=== PATIENT | female | born 1950 | race Hispanic/Latino ===

== ENCOUNTER 2016-04-30 14:41 | Outpatient (CLI) | payer MEDICARE ==
--- NOTE | 2016-04-30 16:20 | XRay Report ---
PA and lateral chest: There is tortuous. The cardiac contour is borderline in size. No vascular congestion. The lungs are clear of any nodule or infiltrate. There are no pleural effusions. Compared to a prior study on August 18, 2012 the findings are essentially unchanged. Impression: No acute findings.
== END 2016-04-30 14:42 | disposition home or self-care (01) ==
LOC: XRAY 14:41
PROVIDERS: ATTEND Nurse Practitioner Acute Care
DX: N18.6 End stage renal disease (principal)
CPT/HCPCS: 71020

== ENCOUNTER 2017-11-10 17:28 | Emergency (ER) | payer MEDICARE ==
[2017-11-10] MEDS ORDERED: XYLOCAINE 2%/ EPI 1:200,000 INFILTRATI ONE (18:40)
[2017-11-10] MEDS ORDERED: XYLOCAINE 1%/ EPI 1:100,000 INFILTRATI ONE (18:42)
[2017-11-10 18:54] VITALS: BP 147/79
--- NOTE | 2017-11-10 19:28 | Emergency Department Report ---
HPI - General Chief Complaint: Laceration/Recheck/Suture Time Seen by Provider: 11/10/17 18:30 - HPI HPI: The patient is a 67yo female who presents for evaluation of postop bleeding for the past one to 2 hours. The patient states that she received a skin excision from the right upper chest wall earlier today at her disease management nurse's office. She shares that after arriving home, she developed constant severe bleeding from the incision site, worsened with movement of the right arm. She denies trauma to the surgical site, swelling, surrounding redness, warmth, or development of fever. She also denies blood thinner use or easy bruising or bleeding. ED Past Medical Hx - Past Medical History Previous Medical History?: Yes Hx Hypertension: Yes (History of HTn, but currently off meds) Hx CVA: No Hx Heart Attack/AMI: No Hx Congestive Heart Failure: No Hx Diabetes: No Hx Deep Vein Thrombosis: No Hx Pulmonary Embolism: No Hx GERD: No Hx Liver Disease: No Hx Renal Disease: Yes (end-stage renal disease) Hx of Cancer: No Hx Sickle Cell Disease: No Hx Arthritis: Yes Hx Headaches / Migraines: No Hx Seizures: No Hx Kidney Stones: No Hx Psychiatric Treatment: No Hx Asthma: No Hx COPD: No Hx Tuberculosis: No Hx Dementia: No Hx HIV: No - Surgical History Past Surgical History?: Yes Hx Coronary Stent: No Hx Open Heart Surgery: No Hx Pacemaker: No Hx Internal Defibrillator: No Hx Cholecystectomy: No Hx Appendectomy: No Hx Breast Surgery: No Additional Surgical History: Left upper extremity fistula, hysterectomy - Social History Smoking Status: Light Tobacco Smoker Substance Use Type: None ED Review of Systems ROS: Stated complaint: BLEEDING SURGICAL SITE Other details as noted in HPI Constitutional: denies: fever ENT: denies: throat or neck pain Respiratory: denies: cough, shortness of breath Cardiovascular: denies: chest pain Endocrine: denies unexplained weight loss or gain Gastrointestinal: denies: abdominal pain, nausea Genitourinary: denies: dysuria Musculoskeletal: denies: leg swelling Skin: reports bleeding denies: rash Neurological: denies: headache Hematological/Lymphatic: denies: easy bleeding or easy bruising Psych: denies sadness or hopelessness Physical Exam - Physical Exam Vital Signs: Vital Signs 11/10/17 11/10/17 11/10/17 17:28 17:31 17:45 Temperature Pulse Rate Respiratory Rate Blood Pressure 123/101 123/101 Blood Pressure [Right] O2 Sat by Pulse 99 93 99 Oximetry 11/10/17 11/10/17 11/10/17 17:59 18:00 18:15 Temperature 98.2 F Pulse Rate 95 H Respiratory 18 Rate Blood Pressure 123/101 123/101 147/79 Blood Pressure 123/101 [Right] O2 Sat by Pulse 98 98 99 Oximetry 11/10/17 11/10/17 11/10/17 18:31 18:45 18:52 Temperature Pulse Rate Respiratory 18 Rate Blood Pressure 147/79 147/79 Blood Pressure [Right] O2 Sat by Pulse 100 99 100 Oximetry Physical Exam: General: well-nourished, well-developed, no acute distress Head: Normocephalic, atraumatic Eyes: normal sclera ENT: Mucous membranes are pink and moist Neck: trachea midline, neck supple, No neck stiffness, no cervical adenopathy Respiratory: Breath sounds equal bilaterally, no wheezing, rales, or rhonchi Cardio: S1 and S2 present, no murmurs, rubs, gallops, capillary refill is brisk Abdomen: Normoactive bowel sounds, soft abdomen, no rigidity, no guarding or rebound tenderness Chest WALL/Back: surgical incision site present to the right upper chest wall, 1 cm of wound dehiscence present to center of incision site, slow constant bleeding present from wound, no surrounding swelling, purpura, crepitus, warmth , fluctuance. Surrounding skin is soft and pliable, no signs of compartment syndrome Musc: No pitting edema Skin: No rash Psych: Normal affect ED Course Vital Signs 11/10/17 11/10/17 11/10/17 17:28 17:31 17:45 Temperature Pulse Rate Respiratory Rate Blood Pressure 123/101 123/101 Blood Pressure [Right] O2 Sat by Pulse 99 93 99 Oximetry 11/10/17 11/10/17 11/10/17 17:59 18:00 18:15 Temperature 98.2 F Pulse Rate 95 H Respiratory 18 Rate Blood Pressure 123/101 123/101 147/79 Blood Pressure 123/101 [Right] O2 Sat by Pulse 98 98 99 Oximetry 11/10/17 11/10/17 11/10/17 18:31 18:45 18:52 Temperature Pulse Rate Respiratory 18 Rate Blood Pressure 147/79 147/79 Blood Pressure [Right] O2 Sat by Pulse 100 99 100 Oximetry - Laceration /Wound Repair Right Upper Anterior Chest Wound Location: chest Wound Length (cm): 2 Wound's Depth, Shape: superficial, linear Irrigated w/ Saline (ccs): 250 Betadine Prep?: Yes Anesthesia: Lidocaine w/ Epi Volume Anesthetic (ccs): 10 Wound Repaired With: sutures Suture Size/Type: 3:0, nylon Number of Sutures: 4 Layer Closure?: No Sterile Dressing Applied?: Yes Progress: bleeding controlled, patient tolerated well ED Medical Decision Making - Lab Data Result diagrams: 11/10/17 19:29 - Medical Decision Making The patient was seen and examined by myself. The patient is placed on a printing grey cloth tender and continuous pulse ox. On initial evaluation, the patient was found to be in no distress. Evaluation orders were placed. 4 sutures were placed in the patient's dehisced wound, and bleeding was controlled. The patient was monitored for greater than 1 hour. Lab results reveal normal coags and platelet level greater than 100. The patient was reevaluated and reported that their symptoms were markedly improved, and the patient was found to have continued resolution of her bleeding. The patient is stable for discharge with outpatient follow-up. The patient is given follow-up and return instructions. The patient expressed understanding and agreed with the plan. The patient is discharged in stable condition. Critical care attestation.: If time is entered above; I have spent that time in minutes in the direct care of this critically ill patient, excluding procedure time. ED Disposition Clinical Impression: Bleeding from wound Postoperative wound dehiscence Qualifiers: Encounter type: initial encounter Qualified Code(s): T81.31XA - Disruption of external operation (surgical) wound, not elsewhere classified, initial encounter Disposition: DC-01 TO HOME OR SELFCARE Is pt being admited?: No Does the pt Need Aspirin: No Condition: Stable Instructions: Suture Care (ED), Acute Wound Care (ED), Bleeding (ED) Referrals: ODETTE LAYTON DO [Staff Physician] - 3-5 Days Time of Disposition: 19:25
[2017-11-10 19:45] LABS: Basophils % (Auto) 0.5 % (0.0-1.8); Eosinophils # (Auto) 0.1 K/mm3 (0.0-0.4); Eosinophils % (Auto) 2.1 % (0.0-4.3); Hematocrit 27.7 % (30.3-42.9); Hemoglobin 8.7 gm/dl (10.1-14.3); Lymphocytes # (Auto) 1.3 K/mm3 (1.2-5.4); Lymphocytes % (Auto) 29.2 % (13.4-35.0); Mean Corpuscular HGB Conc 31 % (30-34); Mean Corpuscular Hemoglobin 30 pg (28-32); Mean Corpuscular Volume 96 fl (79-97); Monocytes # (Auto) 0.4 K/mm3 (0.0-0.8); Monocytes % (Auto) 8.9 % (0.0-7.3); Platelet Count 123 K/mm3 (140-440); Red Cell Distribution Width 15.9 % (13.2-15.2)
[2017-11-10 19:55] LABS: INR 1.3 (0.87-1.13)
[2017-11-10 19:56] LABS: Partial Thromboplastin Time 28.5 Sec. (24.2-36.6)
== END 2017-11-10 20:19 | disposition home or self-care (01) ==
LOC: ED 17:28
DX: S21.111A Laceration without foreign body of right front wall of thorax without penetration into thoracic cavity, initial encounter (principal); T81.31XA Disruption of external operation (surgical) wound, not elsewhere classified, initial encounter; I12.0 Hypertensive chronic kidney disease with stage 5 chronic kidney disease or end stage renal disease; N18.6 End stage renal disease; M19.90 Unspecified osteoarthritis, unspecified site; Z90.710 Acquired absence of both cervix and uterus; Z72.0 Tobacco use; W26.8XXA Contact with other sharp object(s), not elsewhere classified, initial encounter; Y93.89 Activity, other specified; Y92.89 Other specified places as the place of occurrence of the external cause; Y99.8 Other external cause status
CPT/HCPCS: 36415; 85025; 85610; 85730

== ENCOUNTER 2017-11-30 15:31 | Emergency (ER) | payer MEDICARE ==
[2017-11-30 15:41] VITALS: BP 160/85
--- NOTE | 2017-11-30 16:57 | Emergency Department Report ---
ED Recheck HPI - General Chief Complaint: Dental/Oral Stated Complaint: SUTURES DETACHED Time Seen by Provider: 11/30/17 16:18 Source: patient Mode of arrival: Ambulatory Limitations: No Limitations - History of Present Illness Initial Comments: This is a 67-year-old female nontoxic, well nourished in appearance, no acute signs of distress presents to the ED for wound check. Patient stated she had a surgical procedure by a plastic surgeon Dr. Swann this morning. Patient stated she contacted Dr. Swann which he instructed patient to come to the ED for a surgical site check. Patient stated she was concerned that the stitches has came out and had bleeding. Patient stated that she had active bleeding after surgery about 1 hour after surgery but now has stopped. Patient denies any fever, chills, nausea, vomiting, chest pain, shortness of breath, headache or stiff neck. Patient denies any allergies. MD Complaint: wound re-check -: This morning Returns Today for: wound recheck Symptoms Since Prior Visit: no new symptoms Associated Symptoms: none. denies: fever, chills, chest pain, shortness of breath, rash, malaise, nasuea, abdominal pain - Related Data Allergies Allergy/AdvReac Type Severity Reaction Status Date / Time No Known Allergies Allergy Verified 11/30/17 15:41 ED Review of Systems ROS: Stated complaint: SUTURES DETACHED Other details as noted in HPI Constitutional: denies: chills, fever Eyes: denies: eye pain, eye discharge, vision change ENT: denies: ear pain, throat pain Respiratory: denies: cough, shortness of breath, wheezing Cardiovascular: denies: chest pain, palpitations Endocrine: no symptoms reported Gastrointestinal: denies: abdominal pain, nausea, diarrhea Genitourinary: denies: urgency, dysuria, discharge Musculoskeletal: denies: back pain, joint swelling, arthralgia Skin: denies: rash, lesions Neurological: denies: headache, weakness, paresthesias Psychiatric: denies: anxiety, depression Hematological/Lymphatic: denies: easy bleeding, easy bruising ED Past Medical Hx - Past Medical History Previous Medical History?: Yes Hx Hypertension: Yes (History of HTn, but currently off meds) Hx CVA: No Hx Heart Attack/AMI: No Hx Congestive Heart Failure: No Hx Diabetes: No Hx Deep Vein Thrombosis: No Hx Pulmonary Embolism: No Hx GERD: No Hx Liver Disease: No Hx Renal Disease: Yes (end-stage renal disease, HD M-W-) Hx Sickle Cell Disease: No Hx Arthritis: Yes Hx Headaches / Migraines: No Hx Seizures: No Hx Kidney Stones: No Hx Psychiatric Treatment: No Hx Asthma: No Hx COPD: No Hx Tuberculosis: No Hx Dementia: No Hx HIV: No - Surgical History Hx Coronary Stent: No Hx Open Heart Surgery: No Hx Pacemaker: No Hx Internal Defibrillator: No Hx Cholecystectomy: No Hx Appendectomy: No Hx Breast Surgery: No Additional Surgical History: Left upper extremity fistula, hysterectomy, skin cancer removal - Social History Smoking Status: Never Smoker Substance Use Type: None ED Physical Exam - General Limitations: No Limitations General appearance: alert, in no apparent distress - Head Head exam: Present: atraumatic, normocephalic - Expanded Head Exam Expanded 1 - dressing intake with no active bleeding and sutures intack - Eye Eye exam: Present: normal appearance - ENT ENT exam: Present: mucous membranes moist - Neck Neck exam: Present: normal inspection - Respiratory Respiratory exam: Present: normal lung sounds bilaterally. Absent: respiratory distress - Cardiovascular Cardiovascular Exam: Present: regular rate, normal rhythm. Absent: systolic murmur, diastolic murmur, rubs, gallop - GI/Abdominal GI/Abdominal exam: Present: soft, normal bowel sounds - Extremities Exam Extremities exam: Present: normal inspection - Back Exam Back exam: Present: normal inspection - Neurological Exam Neurological exam: Present: alert, oriented X3 - Psychiatric Psychiatric exam: Present: normal affect, normal mood - Skin Skin exam: Present: warm, dry, intact, normal color. Absent: rash ED Course Vital Signs 11/30/17 15:42 Temperature 99 F Pulse Rate 91 H Respiratory 16 Rate Blood Pressure 160/85 O2 Sat by Pulse 95 Oximetry - Reevaluation(s) Reevaluation #1: 11/30/17 16:59 Patient is speaking in full sentences with no signs of distress noted. ED Recheck MDM - Medical Decision Making This is a 67-year-old female that presents with a wound check. Patient is stable and was examined by me. I contacted Dr. Singh Swann at [phone] and explained to him of the phsycial exam and he stated that is normal and patient needs to follow-up in the office Thursday. Dr. Swann stated that he told patient to go to the ED becasue they were not understanding what he was telling them and that he was not in his office. A sterile dressing has been reapplied. Patient was was notified and instructed to follow up with Dr. Swann on Thursday or if symptoms worsened and continued to contact Dr. wSann or come to the ER as soon as possible. At time of discharge, the patient does not seem toxic or ill in appearance. No acute signs of distress noted. Patient agrees to discharge treatment plan of care. No further questions noted by the patient. Critical care attestation.: If time is entered above; I have spent that time in minutes in the direct care of this critically ill patient, excluding procedure time. ED Disposition Clinical Impression: Visit for wound check Disposition: TO HOME OR SELFCARE Is pt being admited?: No Does the pt Need Aspirin: No Condition: Stable Additional Instructions: Follow up with Dr. Swann on Thursday or if symptoms worsened and continued to contact Dr. Swann or come to the ER as soon as possible. Referrals: JAYME BRANDT MD [Primary Care Provider] - 3-5 Days ZORA PANG MD [Staff Physician] - 3-5 Days [facility] [Outside] - 3-5 Days
== END 2017-11-30 17:33 | disposition home or self-care (01) ==
LOC: ED 15:31
DX: Z48.01 Encounter for change or removal of surgical wound dressing (principal); I12.0 Hypertensive chronic kidney disease with stage 5 chronic kidney disease or end stage renal disease; N18.6 End stage renal disease; Z99.2 Dependence on renal dialysis; M19.90 Unspecified osteoarthritis, unspecified site; Z90.710 Acquired absence of both cervix and uterus
CPT/HCPCS: 99282

== ENCOUNTER 2018-10-05 07:15 | Day surgery (SDC) | payer MEDICARE ==
[2018-10-05] MEDS ORDERED: NACL 0.9% 1000 ML 1,000 ML IV SCH (08:00)
--- NOTE | 2018-10-05 09:24 | Anesthesia Day of Surgery ---
Anesthesia Day of Surgery - Day of Surgery Patient Examined: Yes Patient H&P Reviewed: Yes Patient is NPO: Yes
--- NOTE | 2018-10-05 09:29 | Anesthesia Consultation ---
Anesthesia Consult and Med Hx Date of service: 10/05/18 - Airway Anesthetic Teeth Evaluation: Poor, Chipped ROM Head & Neck: Adequate Mental/Hyoid Distance: Adequate Mallampati Class: Class II Intubation Access Assessment: Good - Pre-Operative Health Status ASA Pre-Surgery Classification: ASA3 Proposed Anesthetic Plan: MAC - Pulmonary Hx Asthma: Yes COPD: No - Cardiovascular System Hx Hypertension: Yes (CHF) Hx Heart Attack/AMI: No Hx Pacemaker: No Hx Internal Defibrillator: No - Central Nervous System Hx Neuromuscular Disorder: Yes (ARTHRITIS LIMITS ACTIVITIES) Hx Seizures: No Hx Psychiatric Problems: Yes (ANXIETY/DEPRESSION) - Endocrine Hx Renal Disease: Yes (LAST HD YESTERDAY) Hx End Stage Renal Disease: Yes Hx Liver Disease: No Hx Hypothyroidism: Yes - Hematic Hx Anemia: Yes Hx Sickle Cell Disease: No - Other Systems Hx Cancer: Yes (SKIN CANCER)
[2018-10-05] MEDS ORDERED: DIPRIVAN 10 MG/ML IV ONE ×4 (09:44→10:06)
[2018-10-05] MEDS ORDERED: XYLOCAINE MPF 2% ONE (10:00)
--- NOTE | 2018-10-05 10:17 | Short Stay Summary ---
Short Stay Documentation Date of service: 10/05/18 - History H&P: obtained from office - Allergies and Medications Current Medications: Allergies No Known Allergies Allergy (Verified 11/30/17 15:41) Home Medications Medication Instructions Recorded Confirmed Last Taken Type ALPRAZolam 2 mg PO TID 10/02/18 10/05/18 10/03/18 History Aspirin BABY CHEW TAB 81 mg PO DAILY 10/02/18 10/05/18 10/03/18 History Dialyvite with Zinc Tablet 50 mg PO BID 10/02/18 10/05/18 10/03/18 History HYDROcodone/APAP 10-325 1 tab PO Q6H PRN 10/02/18 10/05/18 10/03/18 History Ibuprofen 800 mg PO DAILY 10/02/18 10/05/18 10/03/18 History Mirapex 0.125 mg PO HS 10/02/18 10/05/18 10/03/18 History Omeprazole 40 mg PO DAILY 10/02/18 10/05/18 10/03/18 History Oxybutynin Chloride 5 mg PO DAILY 10/02/18 10/05/18 10/03/18 History QUEtiapine 100 mg PO DAILY 10/02/18 10/05/18 10/03/18 History Renvela 800 mg PO TID 10/02/18 10/05/18 10/03/18 History Sensipar 30 mg PO DAILY 10/02/18 10/05/18 10/03/18 History Synthroid 88 mcg PO DAILY 10/02/18 10/05/18 10/03/18 History Active Medications Sodium Chloride (Nacl 0.9% 1000 Ml) 1,000 mls @ 50 mls/hr IV DIRECT JUDIE Last Admin: 10/05/18 09:20 Dose: 50 mls/hr Documented by: - Brief post op/procedure progress note Date of procedure: 10/05/18 Findings: report dictated Estimated blood loss: none Pathology: list (1. random right colon biopsies, 2. 3 ascending colon polyps) Specimen disposition: to lab Condition: stable - Disposition Condition at discharge: Good Disposition: DC-01 TO HOME OR SELFCARE - Discharge Diagnoses (1) Chronic diarrhea Status: Acute Short Stay Discharge Plan Activity: other (no driving for 24 hours) Weight Bearing Status: Full Weight Bearing Diet: renal Follow up with: JAYME BRANDT MD [Primary Care Provider] - 7 Days
--- NOTE | 2018-10-05 10:20 | Operative Report ---
Operative Report Operative Report: Date of procedure: 10/05/2018 Preprocedure diagnosis: Unexplained chronic diarrhea Post procedure diagnosis:. 3 Ascending colon polyps. Normal-appearing colonic mucosa. Procedure: Colonoscopy to the cecum with hot snare polypectomy 3 and random biopsies of the right colon for microscopic colitis. Endoscopist: Dr. Elmore Anesthesia: Monitored anesthesia care per anesthesia department Estimated blood loss: 0 Medications: Monitored anesthesia care. See separate report by anesthesia for details. After careful discussion of the nature and purpose of the procedure as well as details of the technique risks benefits and alternatives the patient gave consent. Please see recent history and physical from the office. The patient was placed in the left lateral decubitus position and medicated per anesthesia. A rectal exam was performed sphincter tone was normal there were no masses palpable. The UC CEINn 570 scope was passed transanally and advanced under continuous direct vision without difficulty to the cecum. The colon was well prepared. The cecum was normal. 3 small polyps were present in the descending colon between 5-7 mm in size. All 3 polyps are removed with snare and electrocautery. The ascending colon was otherwise normal and on forward and retroflexed views. The transverse colon, descending colon, and sigmoid colon were normal. Random biopsies were taken of the right colon to assess for possible microscopic colitis. The rectum was normal on forward and retroflexed views. The procedure was well-tolerated overall and the patient was observed in recovery. Conclusions: Normal colonic mucosa throughout. 3 small polyps removed with snare and electrocautery in the right colon.. Plan: Await pathology. Follow-up colonoscopy in 3 years. The patient will call the office in 10 days to discuss the pathology and further care. Signed electronically: Jong Elmore M.D.
[2018-10-05 13:09] VITALS: BP 125/68
== END 2018-10-05 07:16 | disposition home or self-care (01) ==
LOC: GIO 07:15
PROVIDERS: ATTEND Internal Medicine Gastroenterology
DX: D12.2 Benign neoplasm of ascending colon (principal); K63.89 Other specified diseases of intestine; I13.2 Hypertensive heart and chronic kidney disease with heart failure and with stage 5 chronic kidney disease, or end stage renal disease; I50.9 Heart failure, unspecified; N18.6 End stage renal disease; J45.909 Unspecified asthma, uncomplicated; M19.90 Unspecified osteoarthritis, unspecified site; E03.9 Hypothyroidism, unspecified; F32.9 Major depressive disorder, single episode, unspecified; F41.9 Anxiety disorder, unspecified; Z85.89 Personal history of malignant neoplasm of other organs and systems; Z79.899 Other long term (current) drug therapy; Z90.710 Acquired absence of both cervix and uterus; Z99.2 Dependence on renal dialysis; Z98.890 Other specified postprocedural states; Z86.2 Personal history of diseases of the blood and blood-forming organs and certain disorders involving the immune mechanism
CPT/HCPCS: 45380; 45385; 88305; J2704; J7030

== ENCOUNTER 2019-02-23 09:54 | Emergency (ER) | payer MEDICARE ==
--- NOTE | 2019-02-23 10:48 | Emergency Department Report ---
ED General Adult HPI - General Chief complaint: Nausea/Vomiting/Diarrhea Stated complaint: GENERAL WEAKNESS Time Seen by Provider: 02/23/19 10:42 Source: patient, EMS, RN notes reviewed, old records reviewed Mode of arrival: Stretcher Limitations: Other - History of Present Illness Initial comments: 68 yo female comes to ER from HD clinic after missing HD for 1 week due to diarrhea that she has had for 8 months. She had colonoscopy 5 m ago that she had polyps removed from. The GI MD told her to take lomotil for diarrhea. Due to pt missing HD for 1 week clinic sent her here. Pt denies cp. She has no abd pain. Diarrhea is concerning to her - she wants to know cause. She has sob when lying flat "when I dont go to dialysis. She is non toxic on exam. -: Gradual, month(s) Worsens with: none Associated Symptoms: denies other symptoms Treatments Prior to Arrival: none - Related Data Home Medications Medication Instructions Recorded Confirmed Last Taken ALPRAZolam 2 mg PO TID 10/02/18 10/05/18 10/03/18 Dialyvite with Zinc Tablet 50 mg PO BID 10/02/18 10/05/18 10/03/18 HYDROcodone/APAP 10-325 1 tab PO Q6H PRN 10/02/18 10/05/18 10/03/18 Mirapex 0.125 mg PO HS 10/02/18 10/05/18 10/03/18 Omeprazole 40 mg PO DAILY 10/02/18 10/05/18 10/03/18 Oxybutynin Chloride 5 mg PO DAILY 10/02/18 10/05/18 10/03/18 QUEtiapine 100 mg PO DAILY 10/02/18 10/05/18 10/03/18 Renvela 800 mg PO TID 10/02/18 10/05/18 10/03/18 Sensipar 30 mg PO DAILY 10/02/18 10/05/18 10/03/18 Synthroid 88 mcg PO DAILY 10/02/18 10/05/18 10/03/18 Allergies Allergy/AdvReac Type Severity Reaction Status Date / Time No Known Allergies Allergy Verified 02/23/19 10:40 ED Review of Systems ROS: Stated complaint: GENERAL WEAKNESS Other details as noted in HPI Comment: All other systems reviewed and negative ED Past Medical Hx - Past Medical History Hx Hypertension: Yes (CHF) Hx CVA: No Hx Heart Attack/AMI: No Hx Congestive Heart Failure: Yes Hx Diabetes: No Hx Deep Vein Thrombosis: No Hx Pulmonary Embolism: No Hx GERD: No Hx Liver Disease: No Hx Renal Disease: Yes Hx Sickle Cell Disease: No Hx Arthritis: Yes Hx Headaches / Migraines: No Hx Seizures: No Hx Kidney Stones: No Hx Psychiatric Treatment: No Hx Asthma: Yes Hx COPD: No Hx Tuberculosis: No Hx Dementia: No Hx HIV: No Additional medical history: chronic diarrhea - Surgical History Past Surgical History?: Yes Hx Coronary Stent: No Hx Open Heart Surgery: No Hx Pacemaker: No Hx Internal Defibrillator: No Hx Cholecystectomy: No Hx Appendectomy: No Hx Breast Surgery: No Additional Surgical History: Left upper extremity fistula, hysterectomy, skin cancer removal - Family History Family history: no significant - Social History Smoking Status: Former Smoker Substance Use Type: None - Medications Home Medications: Home Medications Medication Instructions Recorded Confirmed Last Taken Type ALPRAZolam 2 mg PO TID 10/02/18 10/05/18 10/03/18 History Dialyvite with Zinc Tablet 50 mg PO BID 10/02/18 10/05/18 10/03/18 History HYDROcodone/APAP 10-325 1 tab PO Q6H PRN 10/02/18 10/05/18 10/03/18 History Mirapex 0.125 mg PO HS 10/02/18 10/05/18 10/03/18 History Omeprazole 40 mg PO DAILY 10/02/18 10/05/18 10/03/18 History Oxybutynin Chloride 5 mg PO DAILY 10/02/18 10/05/18 10/03/18 History QUEtiapine 100 mg PO DAILY 10/02/18 10/05/18 10/03/18 History Renvela 800 mg PO TID 10/02/18 10/05/18 10/03/18 History Sensipar 30 mg PO DAILY 10/02/18 10/05/18 10/03/18 History Synthroid 88 mcg PO DAILY 10/02/18 10/05/18 10/03/18 History ED Physical Exam - General Limitations: Other General appearance: alert, in no apparent distress - Head Head exam: Present: atraumatic, normocephalic - Eye Eye exam: Present: normal appearance - ENT ENT exam: Present: mucous membranes moist - Neck Neck exam: Present: normal inspection - Respiratory Respiratory exam: Present: normal lung sounds bilaterally. Absent: respiratory distress - Cardiovascular Cardiovascular Exam: Present: regular rate, normal rhythm. Absent: systolic murmur, diastolic murmur, rubs, gallop - GI/Abdominal GI/Abdominal exam: Present: soft, normal bowel sounds - Extremities Exam Extremities exam: Present: normal inspection - Back Exam Back exam: Present: normal inspection - Neurological Exam Neurological exam: Present: alert, oriented X3 - Psychiatric Psychiatric exam: Present: normal affect, normal mood - Skin Skin exam: Present: warm, dry, intact, normal color, other (LA AV FISTULA). Absent: rash ED Course Vital Signs 02/23/19 10:45 Temperature 97.9 F Pulse Rate 89 Respiratory 18 Rate Blood Pressure 99/54 O2 Sat by Pulse 95 Oximetry ED Medical Decision Making - Lab Data Result diagrams: 02/23/19 10:50 02/23/19 10:50 - EKG Data EKG shows normal: sinus rhythm Rate: normal - EKG Data When compared to previous EKG there are: no significant change Interpretation: no acute changes - Radiology Data Radiology results: report reviewed, image reviewed - Medical Decision Making Labs 02/23/19 02/23/19 10:50 10:50 WBC 4.9 RBC 3.61 L Hgb 10.7 Hct 33.8 MCV 94 MCH 30 MCHC 32 RDW 18.6 H Plt Count 135 L Lymph % (Auto) 18.8 [place] % (Auto) 7.2 Eos % (Auto) 4.8 H Baso % (Auto) 1.0 Lymph # 0.9 L [place] # 0.3 Eos # 0.2 Baso # 0.0 Seg Neutrophils % 68.2 Seg Neutrophils # 3.3 Sodium 141 Potassium 4.9 Chloride 99.6 Carbon Dioxide 16 L Anion Gap 30 BUN 59 H Creatinine 10.4 H Estimated GFR 4 BUN/Creatinine Ratio 6 Glucose 84 Calcium 8.9 Phosphorus 9.20 H Total Bilirubin 0.30 AST 14 ALT 10 Alkaline Phosphatase 85 Total Protein 6.3 Albumin 3.3 L Albumin/Globulin Ratio 1.1 Vital Signs 02/23/19 10:45 Temperature 97.9 F Pulse Rate 89 Respiratory 18 Rate Blood Pressure 99/54 O2 Sat by Pulse 95 Oximetry labs noted K 4.9 12 lead nap volume overload due to missing HD for 1 w clinic will do HD today after we obtain labs if she does not need emergent HD dc to HD clinic via EMS pt will need to see GI for her chronic diarrhea- brown stool, incontinence, no blood - Differential Diagnosis esrd on hd sent from clinic due to missing hd for 1 w Critical care attestation.: If time is entered above; I have spent that time in minutes in the direct care of this critically ill patient, excluding procedure time. ED Disposition Clinical Impression: Fluid overload, Chronic diarrhea, ESRD (end stage renal disease) on dialysis Disposition: DC-01 TO HOME OR SELFCARE Is pt being admited?: No Does the pt Need Aspirin: No Condition: Stable Instructions: Chronic Kidney Disease (ED) Additional Instructions: FOLLOW UP WITH YOUR GI MD FOR YOUR DIARRHEA ALL OF YOUR LABS WERE OK TODAY- NOT REVEALING INFECTION CAUSING ANY DIARRHEA GO TO HD CLINIC FOR NEXT AVAIL HD Referrals: [facility] [Outside] - 3-5 Days Time of Disposition: 11:57
[2019-02-23 10:49] VITALS: BP 99/54
[2019-02-23] MEDS ORDERED: ONDANSETRON 4 MG ODT TAB PO ONE (10:56)
[2019-02-23 11:08] LABS: Eosinophils # (Auto) 0.2 K/mm3 (0.0-0.4); Eosinophils % (Auto) 4.8 % (0.0-4.3); Hematocrit 33.8 % (30.3-42.9); Hemoglobin 10.7 gm/dl (10.1-14.3); Lymphocytes # (Auto) 0.9 K/mm3 (1.2-5.4); Lymphocytes % (Auto) 18.8 % (13.4-35.0); Mean Corpuscular HGB Conc 32 % (30-34); Mean Corpuscular Volume 94 fl (79-97); Monocytes # (Auto) 0.3 K/mm3 (0.0-0.8); Monocytes % (Auto) 7.2 % (0.0-7.3); Platelet Count 135 K/mm3 (140-440); Red Blood Count 3.61 M/mm3 (3.65-5.03); Red Cell Distribution Width 18.6 % (13.2-15.2)
--- NOTE | 2019-02-23 11:17 | XRay Report ---
CHEST 1 VIEW INDICATION: Short of breath, patient missing hemodialysis. COMPARISON: 05/12/2018 FINDINGS: Support devices: None. Heart: Mild cardiomegaly. Lungs/Pleura: Mild pulmonary venous congestion and small left pleural effusion are identified. There is mild compressive atelectasis at the left lung base. The remainder of the lungs are clear. No pneum othorax. Additional findings: None. IMPRESSION: Mild volume overload/CHF. Signer Name: Avelino Sun Jr, MD Signed: 02/23/2019 11:12 AM Workstation Name: [id number]
[2019-02-23 11:32] LABS: Alanine Aminotransferase 10 units/L (7-56); Albumin 3.3 g/dL (3.9-5); BUN/Creatinine Ratio 6; Blood Urea Nitrogen 59 mg/dL (7-17); Calcium 8.9 mg/dL (8.4-10.2); Hemolysis Index 5
== END 2019-02-23 13:01 | disposition home or self-care (01) ==
LOC: ED 09:54
DX: E87.70 Fluid overload, unspecified (principal); R19.7 Diarrhea, unspecified; I13.2 Hypertensive heart and chronic kidney disease with heart failure and with stage 5 chronic kidney disease, or end stage renal disease; N18.6 End stage renal disease; I50.9 Heart failure, unspecified; Z99.2 Dependence on renal dialysis; M19.90 Unspecified osteoarthritis, unspecified site; J45.909 Unspecified asthma, uncomplicated; Z87.891 Personal history of nicotine dependence
CPT/HCPCS: 36415; 71045; 80053; 83880; 84100; 85025; 93005; 93010; Q0162